=== PATIENT | female | born 1965 | race Caucasian/White ===

== ENCOUNTER → 2016-10-22 | Outpatient (CLI) | payer OTHER ==
[~2016-10-22] MED LIST: GADOBUTROL 10 ML VIAL IVP ONE
== END ==
LOC: FIMAGING 14:57
PROVIDERS: ATTEND Anesthesiology Pain Medicine
DX: M51.16 Intervertebral disc disorders with radiculopathy, lumbar region (principal)
CPT/HCPCS: A9585

== ENCOUNTER → 2017-02-14 | Outpatient (CLI) | payer OTHER | LOC: FIMAGING 10:33 | PROVIDERS: ATTEND Internal Medicine | DX: Z12.31 Encounter for screening mammogram for malignant neoplasm of breast (principal); Z13.820 Encounter for screening for osteoporosis; M85.89 Other specified disorders of bone density and structure, multiple sites | CPT/HCPCS: G0202 ==

== ENCOUNTER → 2017-02-24 | Outpatient (CLI) | payer OTHER | LOC: FIMAGING 13:18 | PROVIDERS: ATTEND Internal Medicine | DX: R92.8 Other abnormal and inconclusive findings on diagnostic imaging of breast (principal) | CPT/HCPCS: G0206 ==

== ENCOUNTER 2017-05-27 12:13 | Emergency (ER) | payer OTHER ==
[2017-05-27 12:21] VITALS: RESP 16
--- NOTE | 2017-05-27 12:54 | EDPHY ---
H & P Stated Complaint: generalized abd pain since Time Seen by Provider: 05/27/17 12:53 HPI/ROS: CHIEF COMPLAINT: Abdominal pain HISTORY OF PRESENT ILLNESS: The patient presents to the ED with complaints of progressively worsening abdominal pain that began on . She reports decreased appetite and mild bloating. Her pain is primarily in the upper portion of the abdomen. She does have a history of chronic low back pain and bladder spasms. She did undergo a Botox injection in her bladder mid April. The patient denies any hematuria or dysuria. Patient denies fever cough or congestion. The patient does have a prior history of hysterectomy. She denies recent fall or trauma. She denies acute numbness or weakness. The patient denies additional complaints. REVIEW OF SYSTEMS: A comprehensive 10 point review of systems is otherwise negative aside from elements mentioned in the history of present illness. Source: Patient Exam Limitations: No limitations - Personal History LMP (Females 10-55): Hysterectomy Current Tetanus/Diphtheria Vaccine: Unsure - Medical/Surgical History Hx Asthma: Yes Hx Chronic Respiratory Disease: Yes Hx Diabetes: No Hx Cardiac Disease: No Hx Renal Disease: No Hx Cirrhosis: No Hx Alcoholism: No Hx HIV/AIDS: No Hx Splenectomy or Spleen Trauma: No Other PMH: Asthma, 5 R knee surgeries, most recent 10/2012. 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 Chronic low back pain due to DDD/botox inj to bladder - Social History Smoking Status: Former smoker - Physical Exam Exam: General Appearance: Alert, no distress Eyes: Pupils equal and round no pallor or injection ENT, Mouth: Mucous membranes moist Respiratory: There are no retractions, lungs are clear to auscultation Cardiovascular: Regular rate and rhythm Gastrointestinal: Minimal epigastric tenderness to palpation Neurological: A&O, normal motor function, normal sensory exam, normal cranial nerves Skin: Warm and dry, no rashes Musculoskeletal: Neck is supple nontender Extremities: symmetrical, full range of motion Psychiatric: Patient is oriented X 3, there is no agitation Constitutional: Initial Vital Signs Temperature (C) 36.7 C 05/27/17 12:19 Heart Rate 73 05/27/17 12:19 Respiratory Rate 16 05/27/17 12:19 Blood Pressure 101/70 05/27/17 12:19 O2 Sat (%) 96 05/27/17 12:19 O2 Delivery Mode Room Air Allergies/Adverse Reactions: azithromycin [From Zithromax] Allergy (Verified 05/27/17 12:15) Other-Enter Comments diphenhydramine HCl [From Benadryl] Allergy (Verified 05/27/17 12:15) Eggs, milk, gluten Adverse Reaction (Intermediate, Uncoded 12/02/09 14:56) Home Medications: Medication Instructions Recorded clonazePAM [Klonopin (*)] 0.5 mg PO BID 04/14/14 Cholecalciferol Vit D3 [Vitamin D3 2,000 units PO DAILY 12/08/15 2000 units tab (OTC)] Herbals/Supplements -Info Only 1 ea PO DAILY 12/08/15 Multivitamins [Multivitamin (*)] 1 each PO DAILY 12/08/15 Xolair [Omalizumab] 1 each INJ Q30D 12/08/15 METHIMAZOLE 05/27/17 Meloxicam 05/27/17 Tizanidine HCl 05/27/17 Medical Decision Making - Diagnostics Imaging Results: Imaging Impressions Abdomen X-Ray 05/27/17 13:04 Impression: Constipation. ED Course/Re-evaluation: ED course: The patient IV established. She received a L of normal saline. She received 1 mg of IV Ativan for muscle spasm per her request. The patient's laboratory studies are unremarkable. She has no evidence of a urinary tract infection. Her KUB does demonstrate likely constipation. I re-evaluated the patient at 2:00 p.m.. I find her examination to be not consistent appendicitis or cholecystitis. It out feel that further imaging is indicated at this point time. I am going to recommend the patient try magnesium citrate today. I would like to see her back in 8-12 hours for any ongoing symptoms of pain. She is advised to return to the ED sooner for worsening symptoms. Differential Diagnosis: Differential diagnosis considered includes constipation, gastroenteritis, pancreatitis, cholecystitis, appendicitis - Data Points Laboratory Results: Laboratory Results 05/27/17 12:45 05/27/17 12:45 05/27/17 05/27/17 05/27/17 13:42 12:45 12:45 WBC RBC Hgb Hct MCV MCH MCHC RDW Plt Count MPV Neut % (Auto) Lymph % (Auto) Castro % (Auto) Eos % (Auto) Baso % (Auto) Nucleat RBC Rel Count Absolute Neuts (auto) Absolute Lymphs (auto) Absolute Monos (auto) Absolute Eos (auto) Absolute Basos (auto) Absolute Nucleated RBC Immature Gran % Immature Gran # Sodium Potassium Chloride Carbon Dioxide Anion Gap BUN Creatinine Estimated GFR Glucose Calcium Total Bilirubin 0.6 mg/dL mg/dL (0.1-1.4) Conjugated Bilirubin 0.6 mg/dL H mg/dL (0.0-0.5) Unconjugated Bilirubin 0.0 mg/dL mg/dL (0.0-1.1) AST 25 IU/L IU/L (14-46) ALT 34 IU/L IU/L (9-52) Alkaline Phosphatase 59 IU/L IU/L (38-126) Total Protein 6.5 g/dL g/dL (6.3-8.2) Albumin 4.0 g/dL g/dL (3.5-5.0) Lipase 282 IU/L IU/L (23-300) Beta HCG, Qual NEGATIVE Urine Color ELLIOTT Urine Appearance HAZY Urine pH 7.0 (5.0-7.5) Ur Specific [place] 1.015 (1.002-1.030) Urine Protein NEGATIVE (NEGATIVE) Urine Ketones NEGATIVE (NEGATIVE) Urine Blood NEGATIVE (NEGATIVE) Urine Nitrate POSITIVE H (NEGATIVE) Urine Bilirubin NEGATIVE (NEGATIVE) Urine Urobilinogen 2.0 EU H EU (0.2-1.0) Ur Leukocyte Esterase NEGATIVE (NEGATIVE) Urine RBC 3-5 /hpf H /hpf (0-3) Urine WBC 1-3 /hpf /hpf (0-3) Ur Epithelial Cells TRACE /lpf /lpf (NONE-1+) Urine Bacteria 1+ /hpf H /hpf (NONE SEEN) Urine Mucus TRACE /lpf /lpf (NONE-1+) Urine Glucose NEGATIVE (NEGATIVE) 05/27/17 05/27/17 12:45 12:45 WBC 7.13 10^3/uL 10^3/uL (3.80-9.50) RBC 3.59 10^6/uL L 10^6/uL (4.18-5.33) Hgb 12.6 g/dL g/dL (12.6-16.3) Hct 35.9 % L % (38.0-47.0) MCV 100.0 fL H fL (81.5-99.8) MCH 35.1 pg H pg (27.9-34.1) MCHC 35.1 g/dL g/dL (32.4-36.7) RDW 11.4 % L % (11.5-15.2) Plt Count 218 10^3/uL 10^3/uL (150-400) MPV 10.6 fL fL (8.7-11.7) Neut % (Auto) 66.8 % % (39.3-74.2) Lymph % (Auto) 23.8 % % (15.0-45.0) Castro % (Auto) 8.4 % % (4.5-13.0) Eos % (Auto) 0.1 % L % (0.6-7.6) Baso % (Auto) 0.3 % % (0.3-1.7) Nucleat RBC Rel Count 0.0 % % (0.0-0.2) Absolute Neuts (auto) 4.76 10^3/uL 10^3/uL (1.70-6.50) Absolute Lymphs (auto) 1.70 10^3/uL 10^3/uL (1.00-3.00) Absolute Monos (auto) 0.60 10^3/uL 10^3/uL (0.30-0.80) Absolute Eos (auto) 0.01 10^3/uL L 10^3/uL (0.03-0.40) Absolute Basos (auto) 0.02 10^3/uL 10^3/uL (0.02-0.10) Absolute Nucleated RBC 0.00 10^3/uL 10^3/uL (0-0.01) Immature Gran % 0.6 % % (0.0-1.1) Immature Gran # 0.04 10^3/uL 10^3/uL (0.00-0.10) Sodium 137 mEq/L mEq/L (134-144) Potassium 4.4 mEq/L mEq/L (3.5-5.2) Chloride 102 mEq/L mEq/L (97-110) Carbon Dioxide 23 mEq/l mEq/l (22-31) Anion Gap 12 mEq/L mEq/L (8-16) BUN 11 mg/dL mg/dL (7-23) Creatinine 0.8 mg/dL mg/dL (0.6-1.0) Estimated GFR > 60 Glucose 85 mg/dL mg/dL (70-100) Calcium 9.5 mg/dL mg/dL (8.5-10.4) Total Bilirubin Conjugated Bilirubin Unconjugated Bilirubin AST ALT Alkaline Phosphatase Total Protein Albumin Lipase Beta HCG, Qual Urine Color Urine Appearance Urine pH Ur Specific [place] Urine Protein Urine Ketones Urine Blood Urine Nitrate Urine Bilirubin Urine Urobilinogen Ur Leukocyte Esterase Urine RBC Urine WBC Ur Epithelial Cells Urine Bacteria Urine Mucus Urine Glucose Medications Given: Discontinued Medications Al Hydroxide/Mg Hydroxide (Maalox Susp) 30 ml PO ONCE ONE Stop: 05/27/17 13:32 Last Admin: 05/27/17 13:43 Dose: 30 ml Hydromorphone HCl (Dilaudid) 1 mg IVP EDNOW ONE Stop: 05/27/17 13:41 Last Admin: 05/27/17 13:44 Dose: 1 mg Hyoscyamine Sulfate (Levsin, Hyomax-Sl) 0.25 mg PO ONCE ONE Stop: 05/27/17 13:32 Last Admin: 05/27/17 13:43 Dose: 0.25 mg Lidocaine (Lidocaine 2% Viscous) 15 ml PO ONCE ONE Stop: 05/27/17 13:32 Last Admin: 05/27/17 13:43 Dose: 15 ml Lorazepam (Ativan Injection) 1 mg IVP EDNOW ONE Stop: 05/27/17 13:03 Last Admin: 05/27/17 13:14 Dose: 1 mg Departure - Departure Disposition: Home, Routine, Self-Care Clinical Impression: Abdominal pain Condition: Good Instructions: Abdominal Pain (ED) Additional Instructions: Sometimes we are unable to diagnose an obvious cause of abdominal pain in the Emergency Department. Based upon our evaluation today, I believe your pain is most likely secondary to constipation. I do recommend taking magnesium citrate today to see if that improves her symptoms.. Because more serious conditions can be difficult to diagnose early in the course of their presentation, we ask that you return to the Emergency Department in 8-12 hours for a recheck if you are still having pain. This is necessary to exclude the development of a more serious condition such as appendicitis or other intra-abdominal emergency. In the event your pain markedly increases before that time or you develop intractable vomiting or fever return to the Emergency Department immediately. Referrals: Emelia Ramesh MD [Primary Care Provider] - As per Instructions
[2017-05-27 12:55] LABS: PLATELET COUNT 218 10^3/uL (150-400)
[2017-05-27] MEDS ORDERED: LORazepam 2 MG/ML INJ IVP ONE (13:02)
[2017-05-27] MEDS ORDERED: HYOSCYAMINE SULFATE 0.125 MG TAB PO ONE (13:31)
[2017-05-27] MEDS ORDERED: LIDOCAINE 2% VISCOUS 15 ML UDCUP PO ONE (13:31)
[2017-05-27] MEDS ORDERED: MAG HYDROX/AL HYDROX/SIMETH 30 ML UDCUP PO ONE (13:31)
[2017-05-27] MEDS ORDERED: HYDROmorphONE/DILAUDID 1 MG/ML INJ IVP ONE (13:40)
[2017-05-27 14:46] VITALS: BP 102/76; PULSE 67; TEMP 97.9; O2SAT 99
== END 2017-05-27 14:54 | disposition home or self-care (01) ==
DX: R10.13 Epigastric pain (principal); J45.909 Unspecified asthma, uncomplicated; Z87.891 Personal history of nicotine dependence
CPT/HCPCS: 96374; J1170; J2060

== ENCOUNTER → 2017-08-19 | Outpatient (CLI) | payer OTHER | LOC: FIMAGING 15:08 | DX: M54.5 Low back pain (principal); M51.26 Other intervertebral disc displacement, lumbar region ==

== ENCOUNTER → 2017-12-10 | Outpatient (CLI) | payer OTHER | LOC: FIMAGING 11:17 | PROVIDERS: ATTEND Psychiatry & Neurology Neurology | DX: R20.2 Paresthesia of skin (principal); M50.30 Other cervical disc degeneration, unspecified cervical region; M99.71 Connective tissue and disc stenosis of intervertebral foramina of cervical region; J32.0 Chronic maxillary sinusitis | CPT/HCPCS: A9585 ==

== ENCOUNTER → 2018-02-26 | Outpatient (CLI) | payer OTHER | LOC: FIMAGING 13:39 | PROVIDERS: ATTEND Obstetrics & Gynecology Gynecology | DX: Z12.31 Encounter for screening mammogram for malignant neoplasm of breast (principal) ==